=== PATIENT | female | born 1970 | race Caucasian/White ===

== ENCOUNTER 2023-10-27 05:31 | Day surgery (SDC) | payer OTHER ==
[2023-10-27] MEDS ORDERED: ANESTHESIA TRAY IN PYXIS 1 EA TRAY MC ONE (06:07)
[2023-10-27] MEDS ORDERED: BUPIVACAINE 0.5 % PF 150 MG/30 ML VIAL ONE (06:07)
[2023-10-27] MEDS ORDERED: KETAMINE HCL (500MG/10ML) 50 MG/ML VIAL ONE (06:34)
[2023-10-27] MEDS ORDERED: ROPIVACAINE HCL 0.5% 5 MG/ML 30ML VIAL ONE (06:34)
[2023-10-27] MEDS ORDERED: FENTANYL PF 100MCG/2ML AMPUL ONE (06:34)
[2023-10-27] MEDS ORDERED: FAMOTIDINE/PF INJ 20 MG/2 ML VIAL IV ONE (06:35)
[2023-10-27] MEDS ORDERED: MIDAZOLAM HCL 2 MG/2ML VIAL ONE (06:35)
[2023-10-27 06:37] LABS: PREGNANCY TEST URINE QUAL NEGATIVE (NEGATIVE)
[2023-10-27] MEDS ORDERED: FLUMAZENIL 0.5 MG VIAL ONE (07:59)
[2023-10-27] MEDS ORDERED: ONDANSETRON HCL/PF 4 MG/2 ML VIAL ONE (09:31)
== END 2023-10-27 10:06 | disposition home or self-care (01) ==
LOC: DS 05:31
PROVIDERS: ATTEND Specialist
DX: M94.252 Chondromalacia, left hip (principal); I10 Essential (primary) hypertension; I25.10 Atherosclerotic heart disease of native coronary artery without angina pectoris; Z98.890 Other specified postprocedural states; Z79.899 Other long term (current) drug therapy; S76.112A Strain of left quadriceps muscle, fascia and tendon, initial encounter; X58.XXXA Exposure to other specified factors, initial encounter; Y93.89 Activity, other specified; Y92.89 Other specified places as the place of occurrence of the external cause; Y99.8 Other external cause status
CPT/HCPCS: 27428; 84703; A4217; C1713; C1762; J0690; J1100; J1885; J2250; J2405; J2704; J2765; J2795; J3010; J3490; J7030